=== PATIENT | female | born 1975 | race Caucasian/White ===

== ENCOUNTER → 2019-11-08 11:11 | Outpatient (CLI) | payer SELFPAY ==
--- NOTE | ~2019-11-08 | US_ITS ---
EXAMINATION: US transvaginal EXAM DATE: 11/08/2019 12:10 INDICATION: Right lower quadrant pain. TECHNIQUE: Pelvic transvaginal sonogram was performed. There are multiple grayscale and Doppler imag es available for interpretation. There is no prior study for comparison. FINDINGS: Uterus measures 8.4 x 4.2 x 5.8 cm, and is morphologically normal. Endometrial stripe jaida sures 8 mm, within normal limits. There is no free pelvic fluid. Right adnexa: The right ovary is normal in size and morphology. Left adnexa: The left ovary is normal in size and morphology. IMPRESSION: 1. Unremarkable pelvic ultrasound exam. Reviewed, dictated and finalized at location A. TARIAN
--- NOTE | ~2019-11-08 | US_ITS ---
EXAMINATION: US right upper quadrant DATE: 11/08/2019 12:10 INDICATION: Right upper quadrant abdominal pain. TECHNIQUE: Multiple grayscale and Doppler ultrasound images of the abdomen were obtained. COMPARISON: None FINDINGS: Abdominal aorta is normal in caliber. Inferior vena cava is normal. The visualized portions of the head, body, and tail of the pancreas are normal. The liver is normal without focal lesion. Th ere is normal flow in main portal vein. The gallbladder is normal in size and contains sludge. No gal lstones or gallbladder wall thickening. There was no sonographic Marte sign. The common duct is norm al and measures 4 mm. IMPRESSION: 1. Gallbladder sludge. No evidence of acute cholecystitis. Reviewed, dictated and finalized at location A. [employer] DIRECT[employer]
== END ==
PROVIDERS: PCP Physician Assistant; Visit Provider Physician Assistant
DX: R10.11 Right upper quadrant pain (principal)
CPT/HCPCS: 76705; 76830